=== PATIENT | female | born 1970 | race Caucasian/White ===

== ENCOUNTER 2024-02-13 08:14 | Emergency (ER) | payer SELFPAY ==
[~2024-02-13] VITALS: Ht 167.6 cm; Wt 78.2 kg
[2024-02-13 08:30] LABS: COVID AG,FIA SOURCE NASAL SWAB
[2024-02-13 09:01] LABS: RAPID GROUP A STREP NEGATIVE (NEGATIVE)
[2024-02-13 09:07] LABS: SARS-COV2 (COVID) ANTIGEN,FIA Negative (Negative)
[2024-02-13 09:08] LABS: INFLUENZA TYPE A NEGATIVE FOR TYPE A (NEGATIVE); INFLUENZA TYPE B NEGATIVE FOR TYPE B (NEGATIVE)
[2024-02-13] MEDS: ACETAMINOPHEN 500 MG TABLET PO ONE (09:30)
[2024-02-13] MEDS: LIDOCAINE 2% VISCOUS 15 ML SOLUTION UDCUP PO ONE (09:30)
[2024-02-13 09:34] VITALS: BP 139/87; PULSE 75; RESP 14; TEMP 98.3; O2SAT 97
[2024-02-13] MEDS ORDERED: CEPH-558 PO (10:03)
[2024-02-13] MEDS ORDERED: IBUP-1554 PO (10:03)
[2024-02-13] MEDS ORDERED: ACET-2080 PO (10:03)
== END 2024-02-13 10:27 | disposition home or self-care (01) ==
LOC: EMS 08:14
DX: J02.9 Acute pharyngitis, unspecified (principal); R07.89 Other chest pain; Z90.49 Acquired absence of other specified parts of digestive tract; Z98.890 Other specified postprocedural states; Z20.822 Contact with and (suspected) exposure to COVID-19
CPT/HCPCS: 87430; 87804; 99283